=== PATIENT | female | born 2000 | race American Indian/Alaskan Native ===

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

== ENCOUNTER 2022-01-16 00:39 | Emergency (ER) | payer OTHER ==
[2022-01-16] MEDS ORDERED: diphenhydrAMINE 25 MG CAP PO ONE (01:02)
[2022-01-16] MEDS ORDERED: METOCLOPRAMIDE 10 MG TAB PO ONE (01:02)
[2022-01-16] MEDS ORDERED: predniSONE 20 MG TAB PO ONE (01:02)
--- NOTE | 2022-01-16 02:32 | Emergency Department Report ---
HPI - General Chief Complaint: Allergic Reaction Time Seen by Provider: 01/16/22 01:01 - HPI HPI: Patient 21-year-old Afro-[place]ux[place]bour[place] female who presents for allergic reaction x3 days. Patient states rash to bilateral arms trunk and legs. Rash is described as burning and itching. There is no wheezing no respiratory distress no stridor no shortness of breath. There is been no nausea vomiting no fever chills. Also exacerbated by it scratch cycle. Symptoms are relieved by it scratch cycle. Patient denies history of asthma or bronchitis. There is no seasonal allergies that she is aware of. ED Past Medical Hx - Past Medical History Previous Medical History?: Yes Hx Diabetes: No Hx Renal Disease: No Hx Sickle Cell Disease: No Hx Seizures: No Hx Asthma: No Hx HIV: No - Surgical History Past Surgical History?: No - Social History Smoking Status: Never Smoker Substance Use Type: None - Medications Home Medications: Home Medications Medication Instructions Recorded Confirmed Last Taken Type Ibuprofen [Motrin 400 MG tab] 400 mg PO Q8H PRN #20 tablet 04/21/18 Unknown Rx Famotidine [Pepcid] 20 mg PO BID 10 Days #20 tablet 08/16/21 Unknown Rx Loratadine [Claritin] 10 mg PO 10 10 Days #10 tablet 08/16/21 Unknown Rx Famotidine [Pepcid] 20 mg PO BID #30 tablet 09/08/21 Unknown Rx Acetaminophen [Non-Aspirin Extra 650 mg PO Q6HR PRN #30 tablet 10/12/21 Unknown Rx Strength] Ibuprofen [Motrin] 600 mg PO Q8H PRN #30 tablet 10/12/21 Unknown Rx EPINEPHrine [Epipen] 0.3 mg IJ PRN PRN #1 auto.injct 10/31/21 Unknown Rx Famotidine [Pepcid] 20 mg PO BID 7 Days #14 tablet 10/31/21 Unknown Rx diphenhydrAMINE [Benadryl CAP] 25 mg PO Q8HR PRN #30 capsule 10/31/21 Unknown Rx predniSONE [Deltasone] 40 mg PO QDAY 5 Days #10 tab 10/31/21 Unknown Rx Famotidine [Pepcid] 20 mg PO BID 7 Days #14 tablet 01/16/22 Unknown Rx diphenhydrAMINE [Benadryl CAP] 25 mg PO Q8HR PRN #30 capsule 01/16/22 Unknown Rx predniSONE [Deltasone] 40 mg PO QDAY 5 Days #10 tab 01/16/22 Unknown Rx ED Review of Systems ROS: Stated complaint: ALLERGIC REACTION Other details as noted in HPI Constitutional: denies: chills, fever Eyes: denies: eye pain, eye discharge, vision change ENT: denies: ear pain, throat pain Respiratory: denies: cough, shortness of breath, wheezing Cardiovascular: denies: chest pain, palpitations Endocrine: no symptoms reported Gastrointestinal: denies: abdominal pain, nausea, diarrhea Genitourinary: denies: urgency, dysuria, discharge Musculoskeletal: denies: back pain, joint swelling, arthralgia Skin: rash, pruritus. denies: lesions Neurological: denies: headache, weakness, paresthesias Psychiatric: denies: anxiety, depression Hematological/Lymphatic: as per HPI Physical Exam - Physical Exam Vital Signs: Vital Signs 01/16/22 00:45 Temperature 97.6 F Pulse Rate 86 Respiratory 18 Rate Blood Pressure 116/79 [Left] O2 Sat by Pulse 99 Oximetry General: Patient with no acute distress. Patient is alert oriented x3 patient is amatory with steady gait respirations are even nonlabored there is no wheezing no stridor. Physical Exam: Lung sounds are clear throughout, rash is raised rough mild erythema no drainage no open wounds. ED Course Vital Signs 01/16/22 00:45 Temperature 97.6 F Pulse Rate 86 Respiratory 18 Rate Blood Pressure 116/79 [Left] O2 Sat by Pulse 99 Oximetry ED Medical Decision Making - Medical Decision Making Symptoms are improved. Rash is resolving. DC'd home with prescriptions. Follow-up primary care doctor in 2 to 3 days. Return to emergency department should symptoms worsen. Patient verbalized agreement and understanding with discharge plan. Patient DC'd home in stable condition at this time. Critical care attestation.: If time is entered above; I have spent that time in minutes in the direct care of this critically ill patient, excluding procedure time. ED Disposition Clinical Impression: Allergic dermatitis Allergic reaction Qualifiers: Encounter type: initial encounter Qualified Code(s): T78.40XA - Allergy, unspecified, initial encounter Disposition: HOME / SELF CARE / HOMELESS Is pt being admited?: No Does the pt Need Aspirin: No Condition: Stable Instructions: Allergies, Adult Additional Instructions: Take medications as prescribed. Follow-up with your primary care doctor in 2 days. Return to emergency department should symptoms worsen. Prescriptions: diphenhydrAMINE [Benadryl CAP] 25 mg PO Q8HR PRN #30 capsule PRN Reason: Allergies predniSONE [Deltasone] 40 mg PO QDAY 5 Days #10 tab Famotidine [Pepcid] 20 mg PO BID 7 Days #14 tablet Referrals: DALE RODRÍGUEZ MD [Staff Physician] - 3-5 Days Forms: Work/School Release Form(ED) Time of Disposition: 03:15
[2022-01-16] MEDS ORDERED: IBUPROFEN 800 MG TAB PO ONE (03:05)
[2022-01-16 03:26] VITALS: BP 121/77
== END 2022-01-16 05:10 | disposition home or self-care (01) ==
LOC: ED 00:39
DX: T78.40XA Allergy, unspecified, initial encounter (principal); X58.XXXA Exposure to other specified factors, initial encounter
CPT/HCPCS: 99282

== ENCOUNTER 2022-02-16 11:04 | Emergency (ER) | payer OTHER ==
[2022-02-16 11:11] VITALS: BP 112/76
[2022-02-16] MEDS ORDERED: FAMOTIDINE 20 MG TAB PO ONE (11:14)
[2022-02-16] MEDS ORDERED: methylPREDNISolone Sod Succinate 125 MG/2 ML INJ IM ONE (11:14)
[2022-02-16] MEDS ORDERED: diphenhydrAMINE 25 MG CAP PO ONE (11:14)
--- NOTE | 2022-02-16 12:46 | Emergency Department Report ---
HPI - General Chief Complaint: Allergic Reaction Time Seen by Provider: 02/16/22 11:13 - HPI HPI: 22-year-old black female with no past medical history presents to the emergency department for evaluation of possible allergic reaction. She states that she woke up this morning with welts all over her body, full body itching, and intermittent shortness of breath. She states that the only known allergies she has is penicillin and denies any use of penicillin. She denies chest tightness and has not taken anything for symptoms. ED Past Medical Hx - Past Medical History Hx Diabetes: No Hx Renal Disease: No Hx Sickle Cell Disease: No Hx Seizures: No Hx Asthma: No Hx HIV: No - Social History Smoking Status: Never Smoker Substance Use Type: None - Medications Home Medications: Home Medications Medication Instructions Recorded Confirmed Last Taken Type Ibuprofen [Motrin 400 MG tab] 400 mg PO Q8H PRN #20 tablet 04/21/18 Unknown Rx Famotidine [Pepcid] 20 mg PO BID 10 Days #20 tablet 08/16/21 Unknown Rx Loratadine [Claritin] 10 mg PO 10 10 Days #10 tablet 08/16/21 Unknown Rx Famotidine [Pepcid] 20 mg PO BID #30 tablet 09/08/21 Unknown Rx Acetaminophen [Non-Aspirin Extra 650 mg PO Q6HR PRN #30 tablet 10/12/21 Unknown Rx Strength] Ibuprofen [Motrin] 600 mg PO Q8H PRN #30 tablet 10/12/21 Unknown Rx EPINEPHrine [Epipen] 0.3 mg IJ PRN PRN #1 auto.injct 10/31/21 Unknown Rx Famotidine [Pepcid] 20 mg PO BID 7 Days #14 tablet 10/31/21 Unknown Rx diphenhydrAMINE [Benadryl CAP] 25 mg PO Q8HR PRN #30 capsule 10/31/21 Unknown Rx predniSONE [Deltasone] 40 mg PO QDAY 5 Days #10 tab 10/31/21 Unknown Rx Famotidine [Pepcid] 20 mg PO BID 7 Days #14 tablet 01/16/22 Unknown Rx diphenhydrAMINE [Benadryl CAP] 25 mg PO Q8HR PRN #30 capsule 01/16/22 Unknown Rx predniSONE [Deltasone] 40 mg PO QDAY 5 Days #10 tab 01/16/22 Unknown Rx Prednisone [predniSONE 10 mg 10 mg PO .TAPER #1 pack 02/16/22 Unknown Rx (6-Day Pack, 21 Tabs)] hydrOXYzine PAMOATE [Vistaril] 25 mg PO Q6HR PRN #21 capsule 02/16/22 Unknown Rx ED Review of Systems ROS: Stated complaint: ALLERGIC REACTION Other details as noted in HPI Comment: All other systems reviewed and negative Constitutional: denies: chills, fever Eyes: denies: vision change ENT: denies: throat pain, congestion Respiratory: shortness of breath. denies: cough, SOB with exertion, SOB at r est, stridor, wheezing Cardiovascular: denies: chest pain, palpitations, dyspnea on exertion Gastrointestinal: denies: abdominal pain, nausea, vomiting Musculoskeletal: denies: back pain Skin: rash Neurological: denies: headache (Full body), weakness, numbness, paresthesias Physical Exam - Physical Exam Vital Signs: Vital Signs 02/16/22 02/16/22 11:10 11:57 Temperature 98.7 F Pulse Rate 89 96 H Respiratory 18 Rate Blood Pressure 112/76 [Right] O2 Sat by Pulse 99 100 Oximetry ED Course Vital Signs 02/16/22 02/16/22 11:10 11:57 Temperature 98.7 F Pulse Rate 89 96 H Respiratory 18 Rate Blood Pressure 112/76 [Right] O2 Sat by Pulse 99 100 Oximetry ED Medical Decision Making - Medical Decision Making 22-year-old black female with no past medical history presents to the emergency department for evaluation of possible allergic reaction. She states that she woke up this morning with welts all over her body, full body itching, and intermittent shortness of breath. She states that the only known allergies she has is penicillin and denies any use of penicillin. She denies chest tightness and has not taken anything for symptoms. Rash improved after medication, and shortness of breath completely resolved. Patient continues to deny any chest pain or tightness and not in any acute distress. Patient will be discharged home with 6-day prednisone steroid pack along with Vistaril to use as needed for itching. She is advised to follow-up with application engineer or primary care provider for further evaluation and management. She is advised to return to the emergency department for any concerning symptoms. She verbalized understanding of and agreement with plan of care. Critical care attestation.: If time is entered above; I have spent that time in minutes in the direct care of this critically ill patient, excluding procedure time. ED Disposition Clinical Impression: Allergic reaction Qualifiers: Encounter type: initial encounter Qualified Code(s): T78.40XA - Allergy, unspecified, initial encounter Disposition: HOME / SELF CARE / HOMELESS Is pt being admited?: No Does the pt Need Aspirin: No Condition: Stable Instructions: Allergies, Adult, [id number] Additional Instructions: Take medications as prescribed. Follow-up with primary care provider if worsening symptoms. Return to the emergency department as needed. Prescriptions: Prednisone [predniSONE 10 mg (6-Day Pack, 21 Tabs)] 10 mg PO .TAPER #1 pack hydrOXYzine PAMOATE [Vistaril] 25 mg PO Q6HR PRN #21 capsule PRN Reason: Itching Referrals: JUAN CRANDALL MD [Referring] - 3-5 Days Forms: Work/School Release Form(ED) Time of Disposition: 12:45 Physical Examination - Vital Signs Vital Signs: Vital Signs Temp Pulse Resp BP Pulse Ox 02/16/22 11:57 96 H 100 02/16/22 11:10 98.7 F 89 18 112/76 99 - Constitutional Condition: no apparent distress General appearance: comfortable - HEENT Sclera: normal Conjunctiva: normal - Neck Cervical lymph nodes: no palpable lymph nodes - Chest/Breast Chest appearance: normal - Respiratory Respiratory effort: normal Lungs: clear to auscultation - Cardiovascular Heart: regular, normal heart rate Pulses: normal radial and dorsali Leg edema: none - Gastrointestinal Abdomen: soft, non-tender, non-distended, positive bowel sounds - Genitourinary Genitourinary: no CVA tenderness on perc - Muskuloskeletal Musculoskeletal: normal range of motion, no joint swelling, tender Gait: normal Spine/back: normal Skin: rash (Full body) Neurologic: alert and oriented to time, place and person, motor strength and sensation are grossly intact - Psychiatric Affect: normal Memory: normal Orientation: time, place, person
== END 2022-02-16 13:42 | disposition home or self-care (01) ==
LOC: ED 11:04
DX: T78.40XA Allergy, unspecified, initial encounter (principal); X58.XXXA Exposure to other specified factors, initial encounter; Z88.0 Allergy status to penicillin; Z79.899 Other long term (current) drug therapy
CPT/HCPCS: 96372; 99282; J2930

== ENCOUNTER 2022-03-04 11:28 | Emergency (ER) | payer OTHER ==
--- NOTE | 2022-03-04 11:46 | Emergency Department Report ---
Blank Doc - Documentation Documentation: 22-year-old female who presents with multiple joint pain, left arm rash times several days. Stated has muscle aches as well. 1- This is a initial triage assessment/medical screening only. Full assessment and work-up will be completed once the patient is in proper hospital gown, ED bed and in a private room setting. This initial assessment/diagnostic orders/clinical plan/ treatment(s) is/are subject to change based on pt's health status, clinical progression and re-assessment by fellow clinical providers in the ED. Further treatment and workup at subsequent clinical providers discretion. Patient/guardians urged not to elope from ED as their condition may be serious if not clinically assessed and managed. 2-labs 3-UA The patient was evaluated in the emergency department for symptoms described in the history of present illness. He/she was evaluated in the context of the global COVID-19 pandemic, which necessitated consideration that the patient might be at risk for infection with the virus that causes COVID-19. Institutional protocols and algorithms that pertain to the evaluation of patients at risk for COVID-19 are in a state of rapid change based on information released by regulatory bodies including the CDC and federal and state organizations. These policies and algorithms were followed during the patient's care in the emergency department. Please note that these policies, procedures and recommendations changed on a rapid basis.
[2022-03-04 11:49] VITALS: BP 118/80
[2022-03-04 12:58] LABS: Basophils % (Auto) 0.7 % (0.0-1.8); Eosinophils # (Auto) 0.1 K/mm3 (0.0-0.4); Eosinophils % (Auto) 1.6 % (0.0-4.3); Hematocrit 32.9 % (30.3-42.9); Hemoglobin 10.8 gm/dl (10.1-14.3); Lymphocytes # (Auto) 1.1 K/mm3 (1.2-5.4); Mean Corpuscular HGB Conc 33 % (30-34); Mean Corpuscular Volume 84 fl (79-97); Monocytes # (Auto) 0.4 K/mm3 (0.0-0.8); Monocytes % (Auto) 6.9 % (0.0-7.3); Platelet Count 412 K/mm3 (140-440); Red Blood Count 3.91 M/mm3 (3.65-5.03)
[2022-03-04 13:48] LABS: Alanine Aminotransferase 11 units/L (7-56); Albumin 3.7 g/dL (3.9-5); Blood Urea Nitrogen 8 mg/dL (7-17); Calcium 9.8 mg/dL (8.4-10.2); Hemolysis Index 1
[2022-03-04 14:06] LABS: BUN/Creatinine Ratio 16
--- NOTE | 2022-03-04 15:59 | Emergency Department Report ---
ED Extremity Problem HPI - General Chief complaint: Allergic Reaction Stated complaint: ALLERGIC REACTION Time Seen by Provider: 03/04/22 11:45 Source: patient Mode of arrival: Ambulatory Limitations: No Limitations - History of Present Illness Initial comments: Patient is a 22-year-old -[place] female with no past medical history presents to the ED with complaint of acute onset persistent diffuse itchy erythematous maculopapular rashes with polyarticular joint pains and swelling for the last 2 months, worse in the last 2 weeks. Patient states that she has an appointment with a document processing specialist in the next 1 week but could not wait for the appointment because of worsening pain. Patient denies dizziness, syncope, fever, chills, nausea and vomiting, fall, traumatic injury, heavy lifting, cough, sore throat, numbness and tingling or weakness of upper or lower extremities bilaterally, chest pain or shortness of breath. MD Complaint: extremity pain (Multiple diffuse joint pains and swelling), extremity swelling (Polyarticular joint swelling), joint swelling, joint paint, other (Diffuse itchy mild erythematous rashes) -: Gradual, week(s) (2) Location: bilateral lower extremity, knee, other (Particular joint pain and swelling) History of Same: Yes -: Yes myalgia, Yes arthralgia, No fever, No associated dyspnea, No associated chest pain Radiation: proximal, distal Severity scale (0 -10): 7 Quality: aching, sharp Consistency: constant Improves with: nothing Worsens with: weight bearing, walking, palpation Associated Symptoms: denies other symptoms, arthralgias, rash (Diffuse itchy erythematous maculopapular rash). denies: chest pain, shortness of breath, fever, myalgias - Related Data Previous Rx's Medication Instructions Recorded Last Taken Type Ibuprofen [Motrin 400 MG tab] 400 mg PO Q8H PRN #20 tablet 04/21/18 Unknown Rx Famotidine [Pepcid] 20 mg PO BID 10 Days #20 tablet 08/16/21 Unknown Rx Loratadine [Claritin] 10 mg PO 10 10 Days #10 tablet 08/16/21 Unknown Rx Famotidine [Pepcid] 20 mg PO BID #30 tablet 09/08/21 Unknown Rx Acetaminophen [Non-Aspirin Extra 650 mg PO Q6HR PRN #30 tablet 10/12/21 Unknown Rx Strength] EPINEPHrine [Epipen] 0.3 mg IJ PRN PRN #1 auto.injct 10/31/21 Unknown Rx Famotidine [Pepcid] 20 mg PO BID 7 Days #14 tablet 10/31/21 Unknown Rx diphenhydrAMINE [Benadryl CAP] 25 mg PO Q8HR PRN #30 capsule 10/31/21 Unknown Rx predniSONE [Deltasone] 40 mg PO QDAY 5 Days #10 tab 10/31/21 Unknown Rx Famotidine [Pepcid] 20 mg PO BID 7 Days #14 tablet 01/16/22 Unknown Rx diphenhydrAMINE [Benadryl CAP] 25 mg PO Q8HR PRN #30 capsule 01/16/22 Unknown Rx predniSONE [Deltasone] 40 mg PO QDAY 5 Days #10 tab 01/16/22 Unknown Rx Baclofen [Lioresal] 10 mg PO TID PRN #30 tab 03/04/22 Unknown Rx Ibuprofen [Motrin 600 MG tab] 600 mg PO Q8H PRN #30 tablet 03/04/22 Unknown Rx Prednisone [predniSONE 10 mg 10 mg PO .TAPER #1 pack 03/04/22 Unknown Rx (6-Day Pack, 21 Tabs)] hydrOXYzine PAMOATE [Vistaril] 25 mg PO Q8HR PRN #40 capsule 03/04/22 Unknown Rx Allergies Allergy/AdvReac Type Severity Reaction Status Date / Time Penicillins Allergy Anaphylaxis Verified 01/16/22 00:48 ED Review of Systems ROS: Stated complaint: ALLERGIC REACTION Other details as noted in HPI Constitutional: denies: chills, fever Eyes: denies: eye pain, eye discharge, vision change ENT: denies: ear pain, throat pain Respiratory: denies: cough, shortness of breath, wheezing Cardiovascular: denies: chest pain, palpitations Endocrine: no symptoms reported Gastrointestinal: denies: abdominal pain, nausea, diarrhea Genitourinary: denies: urgency, dysuria, discharge Musculoskeletal: joint swelling, arthralgia (Diffuse polyarticular joint pains and swelling), myalgia. denies: back pain Skin: rash (Diffuse itchy erythematous maculopapular rash), pruritus. denies: lesions, change in color, change in hair/nails Neurological: denies: headache, weakness, paresthesias Psychiatric: denies: anxiety, depression Hematological/Lymphatic: denies: easy bleeding, easy bruising ED Past Medical Hx - Past Medical History Hx Diabetes: No Hx Renal Disease: No Hx Sickle Cell Disease: No Hx Seizures: No Hx Asthma: No Hx HIV: No - Social History Smoking Status: Never Smoker Substance Use Type: None - Medications Home Medications: Home Medications Medication Instructions Recorded Confirmed Last Taken Type Ibuprofen [Motrin 400 MG tab] 400 mg PO Q8H PRN #20 tablet 04/21/18 Unknown Rx Famotidine [Pepcid] 20 mg PO BID 10 Days #20 tablet 08/16/21 Unknown Rx Loratadine [Claritin] 10 mg PO 10 10 Days #10 tablet 08/16/21 Unknown Rx Famotidine [Pepcid] 20 mg PO BID #30 tablet 09/08/21 Unknown Rx Acetaminophen [Non-Aspirin Extra 650 mg PO Q6HR PRN #30 tablet 10/12/21 Unknown Rx Strength] EPINEPHrine [Epipen] 0.3 mg IJ PRN PRN #1 auto.injct 10/31/21 Unknown Rx Famotidine [Pepcid] 20 mg PO BID 7 Days #14 tablet 10/31/21 Unknown Rx diphenhydrAMINE [Benadryl CAP] 25 mg PO Q8HR PRN #30 capsule 10/31/21 Unknown R x predniSONE [Deltasone] 40 mg PO QDAY 5 Days #10 tab 10/31/21 Unknown Rx Famotidine [Pepcid] 20 mg PO BID 7 Days #14 tablet 01/16/22 Unknown Rx diphenhydrAMINE [Benadryl CAP] 25 mg PO Q8HR PRN #30 capsule 01/16/22 Unknown Rx predniSONE [Deltasone] 40 mg PO QDAY 5 Days #10 tab 01/16/22 Unknown Rx Baclofen [Lioresal] 10 mg PO TID PRN #30 tab 03/04/22 Unknown Rx Ibuprofen [Motrin 600 MG tab] 600 mg PO Q8H PRN #30 tablet 03/04/22 Unknown Rx Prednisone [predniSONE 10 mg 10 mg PO .TAPER #1 pack 03/04/22 Unknown Rx (6-Day Pack, 21 Tabs)] hydrOXYzine PAMOATE [Vistaril] 25 mg PO Q8HR PRN #40 capsule 03/04/22 Unknown Rx ED Physical Exam - General Limitations: No Limitations General appearance: alert, in no apparent distress - Head Head exam: Present: atraumatic, normocephalic, normal inspection - Eye Eye exam: Present: normal appearance, PERRL, EOMI Pupils: Present: normal accommodation - ENT ENT exam: Present: normal exam, normal orophraynx, mucous membranes moist, TM's normal bilaterally, normal external ear exam - Neck Neck exam: Present: normal inspection, full ROM. Absent: tenderness - Respiratory Respiratory exam: Present: normal lung sounds bilaterally. Absent: respiratory distress, wheezes, rales, chest wall tenderness, accessory muscle use, decreased breath sounds, other - Cardiovascular Cardiovascular Exam: Present: regular rate, normal rhythm, normal heart sounds. Absent: systolic murmur, diastolic murmur, rubs, gallop - GI/Abdominal GI/Abdominal exam: Present: soft, normal bowel sounds. Absent: tenderness, guarding, rebound, rigid, hyperactive bowel sounds, hypoactive bowel sounds, organomegaly, bruit - Extremities Exam Extremities exam: Present: normal inspection, full ROM, tenderness (Palpable diffuse polyarticular joint tenderness), normal capillary refill, joint swelling. Absent: pedal edema, calf tenderness - Back Exam Back exam: Present: normal inspection, full ROM. Absent: tenderness, CVA tenderness (L), muscle spasm, paraspinal tenderness, vertebral tenderness - Neurological Exam Neurological exam: Present: alert, oriented X3, CN II-XII intact, normal gait, reflexes normal - Psychiatric Psychiatric exam: Present: normal affect, normal mood - Skin Skin exam: Present: warm, dry, intact, normal color, rash (Diffuse erythematous maculopapular rashes), erythema, urticaria. Absent: cyanosis, diaphoretic, petechiae, abrasion, ecchymosis ED Course Vital Signs 03/04/22 11:47 Temperature 98 F Pulse Rate 94 H Respiratory 18 Rate Blood Pressure 118/80 [Right] O2 Sat by Pulse 97 Oximetry ED Medical Decision Making - Lab Data Result diagrams: 03/04/22 12:18 03/04/22 12:18 - Medical Decision Making This is a 22-year-old -[place] female with no past medical history presents to the ED with complaint of acute onset persistent diffuse itchy erythematous maculopapular rashes with polyarticular joint pains and swelling for the last 2 months, worse in the last 2 weeks. Patient states that she has an appointment with a document processing specialist in the next 1 week but could not wait for the appointment because of worsening pain. In the ED, patient is alert and oriented x3 and is not in any distress. Lab test results were reviewed and are all nonactionable. Patient was discharged home on pain medications and advised to follow-up with her document processing specialist as previously scheduled or her primary care physician in 5 to 7 days for reevaluation. Patient was advised return to the ED immediately if symptoms get worse. - Differential Diagnosis Rheumatoid arthritis; muscle strain; muscle spasm; allergic reaction; Critical care attestation.: If time is entered above; I have spent that time in minutes in the direct care of this critically ill patient, excluding procedure time. ED Disposition Clinical Impression: Acute polyarticular juvenile idiopathic arthritis, Irritant dermatitis Muscle strain of upper extremity Qualifiers: Encounter type: initial encounter Laterality: unspecified laterality Qualified Code(s): S46.919A - Strain of unspecified muscle, fascia and tendon at shoulder and upper arm level, unspecified arm, initial encounter Allergic reaction Qualifiers: Encounter type: initial encounter Qualified Code(s): T78.40XA - Allergy, unspecified, initial encounter Disposition: 01 HOME / SELF CARE / HOMELESS Is pt being admited?: No Does the pt Need Aspirin: No Condition: Stable Instructions: Muscle Strain, [id number], Arthritis, [id number], Allergies, Adult Additional Instructions: Take medication with food, drink plenty of fluids and follow-up with your primary care physician in 5 to 7 days for reevaluation. Return to the ED immediately if symptoms get worse. Consider following up with your rheumat ologist as previously scheduled. Prescriptions: Baclofen [Lioresal] 10 mg PO TID PRN #30 tab PRN Reason: Muscle Spasm Ibuprofen [Motrin 600 MG tab] 600 mg PO Q8H PRN #30 tablet PRN Reason: Pain Prednisone [predniSONE 10 mg (6-Day Pack, 21 Tabs)] 10 mg PO .TAPER #1 pack hydrOXYzine PAMOATE [Vistaril] 25 mg PO Q8HR PRN #40 capsule PRN Reason: Itching Referrals: [facility] [Provider Group] - 3-5 Days Time of Disposition: 16:03 Print Language: VINCENTIAN
== END 2022-03-04 16:45 | disposition home or self-care (01) ==
LOC: ED 11:28
DX: S46.912A Strain of unspecified muscle, fascia and tendon at shoulder and upper arm level, left arm, initial encounter (principal); T78.40XA Allergy, unspecified, initial encounter; M08.09 Unspecified juvenile rheumatoid arthritis, multiple sites; L30.9 Dermatitis, unspecified; Z88.0 Allergy status to penicillin; Z79.899 Other long term (current) drug therapy; X58.XXXA Exposure to other specified factors, initial encounter; Y93.89 Activity, other specified; Y92.89 Other specified places as the place of occurrence of the external cause; Y99.8 Other external cause status
CPT/HCPCS: 36415; 80053; 82550; 84703; 85025; 99283

== ENCOUNTER 2022-03-30 07:42 | Emergency (ER) | payer OTHER ==
[2022-03-30 11:30] VITALS: BP 119/85
[2022-03-30] MEDS ORDERED: methylPREDNISolone Sod Succinate 125 MG/2 ML INJ IM ONE (11:50)
[2022-03-30] MEDS ORDERED: KETOROLAC 10 MG TAB PO ONE (11:51)
[2022-03-30] MEDS ORDERED: traMADol 50 MG TAB PO ONE (11:52)
--- NOTE | 2022-03-30 12:06 | Emergency Department Report ---
ED General Adult HPI - General Chief complaint: Chest Pain Stated complaint: CHEST/JOINT PAIN/HIVES Time Seen by Provider: 03/30/22 11:23 Source: patient Mode of arrival: Ambulatory Limitations: No Limitations - History of Present Illness Initial comments: 22-year-old black female with no past medical history presents to the emergency department for evaluation of joint pain all over. She states that she has had the same issue several times over the last few months, had a positive LENA, and is scheduled to see a clinical nurse educator in April who suspects that she probably has rheumatoid arthritis. She states that she has had worsening intermittent pain over the past several months, but in the last week pain has been worse along with some swelling to her hands and feet. She denies injury or trauma. She states that she has not taken any medication for her pain. She states that she has some tenderness to palpation in her chest but denies shortness of breath, nausea, vomiting, dizziness, and diaphoresis. She denies fever and sick contacts. MD Complaint: Pain all over -: Gradual, month(s) Location: chest, upper extremity, lower extremity Radiation: non-radiation Severity scale (0 -10): 10 Quality: aching Consistency: intermittent Worsens with: movement Associated Symptoms: chest pain. denies: confusion, cough, diaphoresis, fever/chills, headaches, loss of appetite, malaise, nausea/vomiting, rash, seizure, shortness of breath, syncope, weakness Treatments Prior to Arrival: none - Related Data Previous Rx's Medication Instructions Recorded Last Taken Type Ibuprofen [Motrin 400 MG tab] 400 mg PO Q8H PRN #20 tablet 04/21/18 Unknown Rx Famotidine [Pepcid] 20 mg PO BID 10 Days #20 tablet 08/16/21 Unknown Rx Loratadine [Claritin] 10 mg PO 10 10 Days #10 tablet 08/16/21 Unknown Rx Famotidine [Pepcid] 20 mg PO BID #30 tablet 09/08/21 Unknown Rx Acetaminophen [Non-Aspirin Extra 650 mg PO Q6HR PRN #30 tablet 10/12/21 Unknown Rx Strength] EPINEPHrine [Epipen] 0.3 mg IJ PRN PRN #1 auto.injct 10/31/21 Unknown Rx Famotidine [Pepcid] 20 mg PO BID 7 Days #14 tablet 10/31/21 Unknown Rx diphenhydrAMINE [Benadryl CAP] 25 mg PO Q8HR PRN #30 capsule 10/31/21 Unknown Rx predniSONE [Deltasone] 40 mg PO QDAY 5 Days #10 tab 10/31/21 Unknown Rx Famotidine [Pepcid] 20 mg PO BID 7 Days #14 tablet 01/16/22 Unknown Rx diphenhydrAMINE [Benadryl CAP] 25 mg PO Q8HR PRN #30 capsule 01/16/22 Unknown Rx predniSONE [Deltasone] 40 mg PO QDAY 5 Days #10 tab 01/16/22 Unknown Rx Baclofen [Lioresal] 10 mg PO TID PRN #30 tab 03/04/22 Unknown Rx Ibuprofen [Motrin 600 MG tab] 600 mg PO Q8H PRN #30 tablet 03/04/22 Unknown Rx Prednisone [predniSONE 10 mg 10 mg PO .TAPER #1 pack 03/04/22 Unknown Rx (6-Day Pack, 21 Tabs)] hydrOXYzine PAMOATE [Vistaril] 25 mg PO Q8HR PRN #40 capsule 03/04/22 Unknown Rx Naproxen [Naprosyn] 500 mg PO BID #14 tab 03/30/22 Unknown Rx methylPREDNISolone [Medrol 4MG 4 mg PO DAILY #1 pack 03/30/22 Unknown Rx DOSEPAK (21 tabs)] traMADoL [Ultram] 50 mg PO Q6HR PRN #12 tablet 03/30/22 Unknown Rx Allergies Allergy/AdvReac Type Severity Reaction Status Date / Time Penicillins Allergy Anaphylaxis Verified 03/30/22 11:31 ED Review of Systems ROS: Stated complaint: CHEST/JOINT PAIN/HIVES Other details as noted in HPI Comment: All other systems reviewed and negative ENT: denies: congestion Respiratory: denies: orthopnea, shortness of breath, SOB with exertion, SOB at rest, stridor, wheezing Cardiovascular: chest pain. denies: palpitations, dyspnea on exertion, orthopnea, edema, syncope, paroxysmal nocturnal dyspnea Gastrointestinal: denies: abdominal pain, nausea, vomiting, diarrhea, hematemesis, melena, hematochezia Genitourinary: denies: urgency, dysuria, frequency, hematuria, discharge, abnormal menses, dyspareunia Musculoskeletal: denies: back pain Neurological: denies: headache, weakness, numbness, paresthesias, confusion, abnormal gait ED Past Medical Hx - Past Medical History Previous Medical History?: No Hx Diabetes: No Hx Renal Disease: No Hx Sickle Cell Disease: No Hx Seizures: No Hx Asthma: No Hx HIV: No - Surgical History Past Surgical History?: No - Social History Smoking Status: Never Smoker Substance Use Type: None - Medications Home Medications: Home Medications Medication Instructions Recorded Confirmed Last Taken Type Ibuprofen [Motrin 400 MG tab] 400 mg PO Q8H PRN #20 tablet 04/21/18 Unknown Rx Famotidine [Pepcid] 20 mg PO BID 10 Days #20 tablet 08/16/21 Unknown Rx Loratadine [Claritin] 10 mg PO 10 10 Days #10 tablet 08/16/21 Unknown Rx Famotidine [Pepcid] 20 mg PO BID #30 tablet 09/08/21 Unknown Rx Acetaminophen [Non-Aspirin Extra 650 mg PO Q6HR PRN #30 tablet 10/12/21 Unknown Rx Strength] EPINEPHrine [Epipen] 0.3 mg IJ PRN PRN #1 auto.injct 10/31/21 Unknown Rx Famotidine [Pepcid] 20 mg PO BID 7 Days #14 tablet 10/31/21 Unknown Rx diphenhydrAMINE [Benadryl CAP] 25 mg PO Q8HR PRN #30 capsule 10/31/21 Unknown Rx predniSONE [Deltasone] 40 mg PO QDAY 5 Days #10 tab 10/31/21 Unknown Rx Famotidine [Pepcid] 20 mg PO BID 7 Days #14 tablet 01/16/22 Unknown Rx diphenhydrAMINE [Benadryl CAP] 25 mg PO Q8HR PRN #30 capsule 01/16/22 Unknown Rx predniSONE [Deltasone] 40 mg PO QDAY 5 Days #10 tab 01/16/22 Unknown Rx Baclofen [Lioresal] 10 mg PO TID PRN #30 tab 03/04/22 Unknown Rx Ibuprofen [Motrin 600 MG tab] 600 mg PO Q8H PRN #30 tablet 03/04/22 Unknown Rx Prednisone [predniSONE 10 mg 10 mg PO .TAPER #1 pack 03/04/22 Unknown Rx (6-Day Pack, 21 Tabs)] hydrOXYzine PAMOATE [Vistaril] 25 mg PO Q8HR PRN #40 capsule 03/04/22 Unknown Rx Naproxen [Naprosyn] 500 mg PO BID #14 tab 03/30/22 Unknown Rx methylPREDNISolone [Medrol 4MG 4 mg PO DAILY #1 pack 03/30/22 Unknown Rx DOSEPAK (21 tabs)] traMADoL [Ultram] 50 mg PO Q6HR PRN #12 tablet 03/30/22 Unknown Rx ED Physical Exam - General Limitations: No Limitations General appearance: alert, in no apparent distress - Head Head exam: Present: atraumatic, normocephalic - Eye Eye exam: Present: normal appearance. Absent: conjunctival injection - Neck Neck exam: Present: normal inspection, full ROM. Absent: tenderness, lymphadenopathy - Respiratory Respiratory exam: Present: normal lung sounds bilaterally, chest wall tenderness. Absent: respiratory distress, wheezes, rales, rhonchi, stridor - Cardiovascular Cardiovascular Exam: Present: tachycardia, normal heart sounds - GI/Abdominal GI/Abdominal exam: Present: soft, normal bowel sounds. Absent: distended, tenderness, guarding, rebound, rigid - Expanded Upper Extremity Exam Left Shoulder Exam: Present: normal inspection Upper Arm exam: Present: normal inspection, tenderness Elbow exam: Present: normal inspection, tenderness Forearm Wrist exam: Present: normal inspection, tenderness Hand Wrist exam: Present: tenderness, swelling. Absent: full ROM, ecchymosis, dislocation, erythema Vascular: Present: normal capillary refill, radial pulse. Absent: vascular compromise, Pallo, pulse deficit radial art Right Shoulder Exam: Present: normal inspection Upper Arm exam: Present: normal inspection, tenderness Elbow exam: Present: normal inspection, tenderness Forearm Wrist exam: Present: normal inspection, tenderness Hand Wrist exam: Present: normal inspection, tenderness, swelling. Absent: full ROM, ecchymosis, deformity, dislocation, erythema Vascular: Present: normal capillary refill, radial pulse. Absent: vascular compromise, Pallo, pulse deficit radial art - Expanded Lower Extremity Exam Left Knee exam: Present: tenderness. Absent: swelling Lower Leg exam: Present: normal inspection, tenderness. Absent: swelling Ankle exam: Present: normal inspection, tenderness. Absent: swelling Foot/Toe exam: Present: normal inspection, tenderness. Absent: full ROM, swelling Neuro vascular tendon exam: Present: no vascular compromise. Absent: pulse deficit, abnormal cap refill, extremity cold to touch, pallor Right Hip exam: Present: normal inspection Knee exam: Present: normal inspection, tenderness. Absent: swelling Lower Leg exam: Present: normal inspection, tenderness. Absent: swelling Ankle exam: Present: normal inspection, tenderness. Absent: swelling Foot/Toe exam: Present: normal inspection, tenderness. Absent: full ROM, swe lling, ecchymosis, erythema Neuro vascular tendon exam: Present: no vascular compromise. Absent: pulse deficit, abnormal cap refill, extremity cold to touch, pallor Gait: Positive: observed and limited by pain - Back Exam Back exam: Present: normal inspection. Absent: CVA tenderness (R), CVA tenderness (L), vertebral tenderness - Neurological Exam Neurological exam: Present: alert, oriented X3 - Psychiatric Psychiatric exam: Present: normal affect, normal mood - Skin Skin exam: Present: warm, dry, intact, normal color ED Course Vital Signs 03/30/22 03/30/22 08:53 11:29 Temperature 98.7 F 97.9 F Pulse Rate 107 H 71 Respiratory 16 20 Rate Blood Pressure 120/78 119/85 [Left] O2 Sat by Pulse 98 100 Oximetry ED Medical Decision Making - EKG Data EKG shows normal: sinus rhythm Rate: tachycardia - EKG Data Interpretation: no acute changes - Medical Decision Making 22-year-old black female with no past medical history presents to the emergency department for evaluation of joint pain all over. She states that she has had the same issue several times over the last few months, had a positive LENA, and is scheduled to see a clinical nurse educator in April who suspects that she probably has rheumatoid arthritis. She states that she has had worsening intermittent pain over the past several months, but in the last week pain has been worse along with some swelling to her hands and feet. She denies injury or trauma. She states that she has not taken any medication for her pain. She states that she has some tenderness to palpation in her chest but denies shortness of breath, nausea, vomiting, dizziness, and diaphoresis. She denies fever and sick contacts. Exam and symptoms consistent with probable flare of rheumatoid arthritis. Patient will be treated with steroids, anti-inflammatories, and pain medication. She is advised to take medication as prescribed and follow-up with rheumatology as planned. She is advised to return to the emergency department as needed. She verbalizes understanding of and agreement with plan of care. Critical care attestation.: If time is entered above; I have spent that time in minutes in the direct care of this critically ill patient, excluding procedure time. ED Disposition Clinical Impression: Joint pain Qualifiers: Joint pain location: unspecified Qualified Code(s): M25.50 - Pain in unspecified joint Disposition: 01 HOME / SELF CARE / HOMELESS Is pt being admited?: No Does the pt Need Aspirin: No Condition: Stable Instructions: Joint Pain, [id number], Arthritis Additional Instructions: Take medication as prescribed. Follow-up with rheumatology as planned. Return to the emergency department as needed. Prescriptions: methylPREDNISolone [Medrol 4MG DOSEPAK (21 tabs)] 4 mg PO DAILY #1 pack Naproxen [Naprosyn] 500 mg PO BID #14 tab traMADoL [Ultram] 50 mg PO Q6HR PRN #12 tablet PRN Reason: Pain Referrals: RIO CORBIN MD [Referring] - 3-5 Days BIANCA MCGILL MD [Staff Physician] - 3-5 Days Forms: Work/School Release Form(ED) Time of Disposition: 12:18
== END 2022-03-30 13:00 | disposition home or self-care (01) ==
LOC: ED 07:42
DX: M25.50 Pain in unspecified joint (principal); Z88.0 Allergy status to penicillin
CPT/HCPCS: 93005; 96372; 99282; J2930

== ENCOUNTER 2022-07-29 12:27 | Emergency (ER) | payer OTHER ==
--- NOTE | 2022-07-29 13:57 | Emergency Department Report ---
ED Abdominal Pain HPI - General Chief Complaint: Abdominal Pain Stated Complaint: ABD PAIN Time Seen by Provider: 07/29/22 13:20 Source: patient, family Mode of arrival: Wheelchair Limitations: No Limitations - History of Present Illness Initial Comments: 22-year-old female with past medical history of lupus and juvenile rheumatoid arthritis reports to the ER with abdominal pain with nausea and vomiting no diarrhea. Patient report her pain is 8 out of 10. Patient reports onset was today while at work patient reports pain is a stabbing pain. Patient reports no other acute signs and symptoms at this time. Severity scale (0 -10): 10 - Related Data Previous Rx's Medication Instructions Recorded Last Taken Type Ibuprofen [Motrin 400 MG tab] 400 mg PO Q8H PRN #20 tablet 04/21/18 Unknown Rx Famotidine [Pepcid] 20 mg PO BID 10 Days #20 tablet 08/16/21 Unknown Rx Loratadine [Claritin] 10 mg PO 10 10 Days #10 tablet 08/16/21 Unknown Rx Famotidine [Pepcid] 20 mg PO BID #30 tablet 09/08/21 Unknown Rx Acetaminophen [Non-Aspirin Extra 650 mg PO Q6HR PRN #30 tablet 10/12/21 Unknown Rx Strength] EPINEPHrine [Epipen] 0.3 mg IJ PRN PRN #1 auto.injct 10/31/21 Unknown Rx Famotidine [Pepcid] 20 mg PO BID 7 Days #14 tablet 10/31/21 Unknown Rx diphenhydrAMINE [Benadryl CAP] 25 mg PO Q8HR PRN #30 capsule 10/31/21 Unknown Rx predniSONE [Deltasone] 40 mg PO QDAY 5 Days #10 tab 10/31/21 Unknown Rx Famotidine [Pepcid] 20 mg PO BID 7 Days #14 tablet 01/16/22 Unknown Rx diphenhydrAMINE [Benadryl CAP] 25 mg PO Q8HR PRN #30 capsule 01/16/22 Unknown Rx predniSONE [Deltasone] 40 mg PO QDAY 5 Days #10 tab 01/16/22 Unknown Rx Baclofen [Lioresal] 10 mg PO TID PRN #30 tab 03/04/22 Unknown Rx Ibuprofen [Motrin 600 MG tab] 600 mg PO Q8H PRN #30 tablet 03/04/22 Unknown Rx Prednisone [predniSONE 10 mg 10 mg PO .TAPER #1 pack 05/01/22 Unknown Rx (6-Day Pack, 21 Tabs)] hydrOXYzine PAMOATE [Vistaril] 25 mg PO Q8HR PRN #40 capsule 03/04/22 Unknown Rx Naproxen [Naprosyn] 500 mg PO BID #14 tab 03/30/22 Unknown Rx methylPREDNISolone [Medrol 4MG 4 mg PO DAILY #1 pack 03/30/22 Unknown Rx DOSEPAK (21 tabs)] traMADoL [Ultram] 50 mg PO Q6HR PRN #12 tablet 03/30/22 Unknown Rx Acetaminophen/Codeine [Tylenol 1 tab PO Q6H PRN 2 Days #8 tab 07/29/22 Unknown Rx /Codeine # 3 tab] Allergies Allergy/AdvReac Type Severity Reaction Status Date / Time Penicillins Allergy Anaphylaxis Verified 03/30/22 11:31 ED Review of Systems ROS: Stated complaint: ABD PAIN Other details as noted in HPI Comment: All other systems reviewed and negative Gastrointestinal: abdominal pain, nausea, vomiting. denies: diarrhea ED Past Medical Hx - Past Medical History Previous Medical History?: Yes Hx Diabetes: No Hx Renal Disease: No Hx Sickle Cell Disease: No Hx Seizures: No Hx Asthma: No Hx HIV: No Additional medical history: Lupus - Surgical History Past Surgical History?: No - Social History Smoking Status: Never Smoker Substance Use Type: None - Medications Home Medications: Home Medications Medication Instructions Recorded Confirmed Last Taken Type Ibuprofen [Motrin 400 MG tab] 400 mg PO Q8H PRN #20 tablet 04/21/18 Unknown Rx Famotidine [Pepcid] 20 mg PO BID 10 Days #20 tablet 08/16/21 Unknown Rx Loratadine [Claritin] 10 mg PO 10 10 Days #10 tablet 08/16/21 Unknown Rx Famotidine [Pepcid] 20 mg PO BID #30 tablet 09/08/21 Unknown Rx Acetaminophen [Non-Aspirin Extra 650 mg PO Q6HR PRN #30 tablet 10/12/21 Unknown Rx Strength] EPINEPHrine [Epipen] 0.3 mg IJ PRN PRN #1 auto.injct 10/31/21 Unknown Rx Famotidine [Pepcid] 20 mg PO BID 7 Days #14 tablet 10/31/21 Unknown Rx diphenhydrAMINE [Benadryl CAP] 25 mg PO Q8HR PRN #30 capsule 10/31/21 Unknown Rx predniSONE [Deltasone] 40 mg PO QDAY 5 Days #10 tab 10/31/21 Unknown Rx Famotidine [Pepcid] 20 mg PO BID 7 Days #14 tablet 01/16/22 Unknown Rx diphenhydrAMINE [Benadryl CAP] 25 mg PO Q8HR PRN #30 capsule 01/16/22 Unknown Rx predniSONE [Deltasone] 40 mg PO QDAY 5 Days #10 tab 01/16/22 Unknown Rx Baclofen [Lioresal] 10 mg PO TID PRN #30 tab 03/04/22 Unknown Rx Ibuprofen [Motrin 600 MG tab] 600 mg PO Q8H PRN #30 tablet 03/04/22 Unknown Rx Prednisone [predniSONE 10 mg 10 mg PO .TAPER #1 pack 03/04/22 Unknown Rx (6-Day Pack, 21 Tabs)] hydrOXYzine PAMOATE [Vistaril] 25 mg PO Q8HR PRN #40 capsule 03/04/22 Unknown Rx Naproxen [Naprosyn] 500 mg PO BID #14 tab 03/30/22 Unknown Rx methylPREDNISolone [Medrol 4MG 4 mg PO DAILY #1 pack 03/30/22 Unknown Rx DOSEPAK (21 tabs)] traMADoL [Ultram] 50 mg PO Q6HR PRN #12 tablet 03/30/22 Unknown Rx Acetaminophen/Codeine [Tylenol 1 tab PO Q6H PRN 2 Days #8 tab 07/29/22 Unknown Rx /Codeine # 3 tab] ED Physical Exam - General Limitations: No Limitations General appearance: alert, in no apparent distress - Head Head exam: Present: atraumatic, normocephalic - Eye Eye exam: Present: normal appearance - ENT ENT exam: Present: mucous membranes moist - Neck Neck exam: Present: normal inspection - Respiratory Respiratory exam: Present: normal lung sounds bilaterally. Absent: respiratory distress - Cardiovascular Cardiovascular Exam: Present: regular rate, normal rhythm. Absent: systolic murmur, diastolic murmur, rubs, gallop - GI/Abdominal GI/Abdominal exam: Present: soft, tenderness, normal bowel sounds. Absent: distended, guarding, rebound - Extremities Exam Extremities exam: Present: normal inspection - Back Exam Back exam: Present: normal inspection - Neurological Exam Neurological exam: Present: alert, oriented X3 - Psychiatric Psychiatric exam: Present: normal affect, normal mood - Skin Skin exam: Present: warm, dry, intact, normal color. Absent: rash ED Course Vital Signs 07/29/22 07/29/22 12:45 19:12 Temperature 97.8 F 98.2 F Pulse Rate 107 H 71 Respiratory 20 16 Rate Blood Pressure 127/90 112/80 [Right] O2 Sat by Pulse 100 100 Oximetry ED Medical Decision Making - Lab Data Result diagrams: 07/29/22 13:22 07/29/22 13:22 - Radiology Data [facility] [address] [place] [address] Cat Scan Report Signed Patient: PRINCESS MAGAN HERNANDEZ MR#: [id number] : 2000 Acct:[id number] Age/Sex: 22 / F ADM Date: 07/29/22 Loc: ED Attending Dr: Ordering Physician: WENDY SLOAN NP Date of Service: 07/29/22 Procedure(s): CT abdomen pelvis w con Accession Number(s): [id number] cc: WENDY SLOAN NP CT ABDOMEN AND PELVIS WITH CONTRAST INDICATION / CLINICAL INFORMATION: RUQ/ RLQ/ LLQ pain. TECHNIQUE: Axial CT images were obtained through the abdomen and pelvis after [address] scans at this location are performed using CT dose reduction for ALARA by means of automated exposure control. COMPARISON: None available. FINDINGS: LOWER CHEST: No significant abnormality. LIVER: No significant abnormality. GALLBLADDER: No significant abnormality. BILE DUCTS: No significant abnormality. PANCREAS: No significant abnormality. SPLEEN: No significant abnormality. ADRENALS: No significant abnormality. RIGHT KIDNEY / URETER: No significant abnormality. LEFT KIDNEY / URETER: No significant abnormality. STOMACH / SMALL BOWEL: No significant abnormality. COLON: Long segmental mural thickening throughout the colon extending from the splenic flexure distally to involve the descending colon, sigmoid segment and rectum. Mucosal hyperenhancement. APPENDIX: No significant abnormality. PERITONEUM: Small volume free fluid, likely reactive. No free air. No fluid collection. LYMPH NODES: No significant adenopathy. AORTA / ARTERIES: No significant abnormality. IVC / VEINS: No significant abnormality. URINARY BLADDER: No significant abnormality. REPRODUCTIVE ORGANS: No significant abnormality. ADDITIONAL FINDINGS: None. SKELETAL SYSTEM: Extra curvature. No acute osseous abnormality. IMPRESSION: 1. Features of moderately severe colitis from the splenic flexure distally to the rectum, statistically most likely infectious or inflammatory patient this age. Gastroenterology evaluation is recommended. Signer Name: Jana Phillips MD Signed: 07/29/2022 4:03 PM Workstation Name: [id number] Transcribed By: Dictated By: Renetta PHILLIPS Electronically Authenticated By: Renetta PHILLIPS Signed Date/Time: 07/29/22 160 DD/ 57 TD/TT: - Medical Decision Making 22-year-old female with past medical history of lupus and juvenile rheumatoid arthritis reports to the ER with abdominal pain with nausea and vomiting no diarrhea. Patient report her pain is 8 out of 10. Patient reports onset was today while at work patient reports pain is a stabbing pain. Patient reports no other acute signs and symptoms at this time. On physical exam patient has right upper right lower and left lower quadrant pain. No distention noted. No other acute abdominal signs noted. No other acute clinical findings noted. CBC CMP unremarkable. Ultrasound no acute process noted CT results of moderate to severe colitis infectious versus bacteria. Patient informed of her ultrasound results CT results and lab reports. Patient informed that she has been told that she is had inflamed bowels before. Patient last seen her gastro provider back in January of this year. Patient denies any blood in stool. Patient informed to follow her primary care provider as she has appointment tomorrow with her PCP Patient informed to make an appoint with her gastro provider as well. Patient clinically does not have any concern for infectious disease process. There is no antibiotic coverage is needed at this time. Patient given oral pain medication for her pain here in the ER. Patient reports pain has decreased. Patient sent home with Tylenol 3 with codeine for pain control if pain was to return. Patient stable for D/C home and agrees with plan of care and verbalized understanding. Vital Signs 07/29/22 07/29/22 12:45 19:12 Temperature 97.8 F 98.2 F Pulse Rate 107 H 71 Respiratory 20 16 Rate Blood Pressure 127/90 112/80 [Right] O2 Sat by Pulse 100 100 Oximetry Lab Results 07/29/22 07/29/22 07/29/22 Range/Units 13:22 13:22 13:22 WBC 7.5 (4.5-11.0) K/mm3 RBC 4.26 (3.65-5.03) M/mm3 Hgb 12.9 (10.1-14.3) gm/dl Hct 39.1 (30.3-42.9) % MCV 92 (79-97) fl MCH 30 (28-32) pg MCHC 33 (30-34) % RDW 16.0 H (13.2-15.2) % Plt Count Not Reportable Lymph % (Auto) 8.5 L (13.4-35.0) % [place] % (Auto) 1.9 (0.0-7.3) % Eos % (Auto) 0.0 (0.0-4.3) % Baso % (Auto) 0.4 (0.0-1.8) % Lymph # (Auto) 0.6 L (1.2-5.4) K/mm3 Archuleta # (Auto) 0.1 (0.0-0.8) K/mm3 Eos # (Auto) 0.0 (0.0-0.4) K/mm3 Baso # (Auto) 0.0 (0.0-0.1) K/mm3 Seg Neutrophils % 89.2 H (40.0-70.0) % Seg Neutrophils # 6.7 (1.8-7.7) K/mm3 Sodium 138 (137-145) mmol/L Potassium 3.6 (3.6-5.0) mmol/L Chloride 99.7 (98-107) mmol/L Carbon Dioxide 22 (22-30) mmol/L Anion Gap 20 mmol/L BUN 14 (7-17) mg/dL Creatinine 0.6 (0.6-1.2) mg/dL Estimated GFR > 60 ml/min BUN/Creatinine Ratio 23 % Glucose 102 H (65-100) mg/dL Calcium 10.0 (8.4-10.2) mg/dL Total Bilirubin 0.20 (0.1-1.2) mg/dL AST 17 (5-40) units/L ALT 17 (7-56) units/L Alkaline Phosphatase 76 (35-129) units/L Total Protein 7.9 (6.3-8.2) g/dL Albumin 4.5 (3.9-5) g/dL Albumin/Globulin Ratio 1.3 % Lipase 51 (13-60) units/L HCG, Qual Negative (Negative) Critical care attestation.: If time is entered above; I have spent that time in minutes in the direct care of this critically ill patient, excluding procedure time. ED Disposition Clinical Impression: Colitis Disposition: 01 HOME / SELF CARE / HOMELESS Is pt being admited?: No Condition: Stable Instructions: Colitis, Abdominal Pain (ED) Prescriptions: Acetaminophen/Codeine [Tylenol /Codeine # 3 tab] 1 tab PO Q6H PRN 2 Days #8 tab PRN Reason: Pain , Severe (7-10) Referrals: BIANCA MCGILL MD [Primary Care Provider] - 3-5 Days
[2022-07-29 13:59] LABS: Alanine Aminotransferase 17 units/L (7-56); Albumin 4.5 g/dL (3.9-5); Blood Urea Nitrogen 14 mg/dL (7-17); Hemolysis Index 18
[2022-07-29 14:00] LABS: BUN/Creatinine Ratio 23
[2022-07-29 14:35] LABS: Basophils % (Auto) 0.4 % (0.0-1.8); Hematocrit 39.1 % (30.3-42.9); Hemoglobin 12.9 gm/dl (10.1-14.3); Lymphocytes # (Auto) 0.6 K/mm3 (1.2-5.4); Lymphocytes % (Auto) 8.5 % (13.4-35.0); Mean Corpuscular HGB Conc 33 % (30-34); Mean Corpuscular Volume 92 fl (79-97); Monocytes # (Auto) 0.1 K/mm3 (0.0-0.8); Monocytes % (Auto) 1.9 % (0.0-7.3); Red Blood Count 4.26 M/mm3 (3.65-5.03)
[2022-07-29] MEDS ORDERED: MORPHINE 4 MG/1 ML INJ IV ONE (14:48)
[2022-07-29] MEDS ORDERED: ONDANSETRON 4 MG/2 ML INJ IV ONE (14:48)
--- NOTE | 2022-07-29 16:07 | Cat Scan Report ---
CT ABDOMEN AND PELVIS WITH CONTRAST INDICATION / CLINICAL INFORMATION: RUQ/ RLQ/ LLQ pain. TECHNIQUE: Axial CT images were obtained through the abdomen and pelvis after 100 IV contrast. All C T scans at this location are performed using CT dose reduction for ALARA by means of automated exposu re control. COMPARISON: None available. FINDINGS: LOWER CHEST: No significant abnormality. LIVER: No significant abnormality. GALLBLADDER: No significant abnormality. BILE DUCTS: No significant abnormality. PANCREAS: No significant abnormality. SPLEEN: No significant abnormality. ADRENALS: No significant abnormality. RIGHT KIDNEY / URETER: No significant abnormality. LEFT KIDNEY / URETER: No significant abnormality. STOMACH / SMALL BOWEL: No significant abnormality. COLON: Long segmental mural thickening throughout the colon extending from the splenic flexure distal ly to involve the descending colon, sigmoid segment and rectum. Mucosal hyperenhancement. APPENDIX: No significant abnormality. PERITONEUM: Small volume free fluid, likely reactive. No free air. No fluid collection. LYMPH NODES: No significant adenopathy. AORTA / ARTERIES: No significant abnormality. IVC / VEINS: No significant abnormality. URINARY BLADDER: No significant abnormality. REPRODUCTIVE ORGANS: No significant abnormality. ADDITIONAL FINDINGS: None. SKELETAL SYSTEM: Extra curvature. No acute osseous abnormality. IMPRESSION: 1. Features of moderately severe colitis from the splenic flexure distally to the rectum, statistical ly most likely infectious or inflammatory patient this age. Gastroenterology evaluation is recommende d. Signer Name: Jana Phillips MD Signed: 07/29/2022 4:03 PM Workstation Name: [id number]
--- NOTE | 2022-07-29 17:06 | Ultrasound Report ---
ULTRASOUND ABDOMEN, LIMITED INDICATION / CLINICAL INFORMATION: RUQ pain. COMPARISON: CT same day. FINDINGS: PANCREAS: Visualized portion shows no significant abnormality. LIVER: No significant abnormality. Normal hepatopedal blood flow in the main portal vein. GALLBLADDER: No significant abnormality. BILE DUCTS: No significant abnormality. Common bile duct measures 2 mm. FREE FLUID: None. ADDITIONAL FINDINGS: None. IMPRESSION: 1. No significant sonographic abnormality of the right upper quadrant. Signer Name: Jana Phillips MD Signed: 07/29/2022 5:01 PM Workstation Name: [email or web address]
[2022-07-29 19:13] VITALS: BP 112/80
== END 2022-07-29 19:13 | disposition home or self-care (01) ==
LOC: ED 12:27
DX: K52.9 Noninfective gastroenteritis and colitis, unspecified (principal); Z88.0 Allergy status to penicillin
CPT/HCPCS: 36415; 74177; 76705; 80053; 83690; 84703; 85025; 96374; 96375; 99284; J2270; J2405; Q9967